=== PATIENT | male | born 1980 | race Two or more races ===

== ENCOUNTER 2019-10-17 01:35 | Emergency (ER) | payer OTHER ==
[2019-10-17 02:36] VITALS: BP 130/78
[2019-10-17] MEDS ORDERED: KETOROLAC TROMETHAMINE INJ/PF 30 MG/1 ML SDV IV ONE (02:37)
[2019-10-17] MEDS ORDERED: DIAZEPAM INJ 10 MG/2 ML DISP.SYRIN IV ONE (02:37)
[2019-10-17] MEDS ORDERED: NORMAL SALINE 1000 ML 1,000 ML IV ONE (02:37)
[2019-10-17] MEDS ORDERED: DEXAMETHASONE SOD PHOS INJ 10 MG/1 ML VIAL IV ONE (02:37)
--- NOTE | 2019-10-17 02:38 | ER Document Report ---
ED General - General Chief Complaint: Low Back Pain Stated Complaint: LOWER BACK PAIN Time Seen by Provider: 10/17/19 02:30 Primary Care Provider: [facility] [Primary Care Provider] - Follow up as needed Notes: Patient is a 39-year-old male that comes emergency department for chief complaint of lower back pain for about 5 days now. He states that it started out not as bad, he went to the [place] [facility] and they gave him a shot of Toradol and started him on tramadol, he states that he was doing reasonably well until today when he started having bad back spasms. He states he has to lean to the left where he will have terrible spasms. Pain is worse on the right but is on both sides in the lower back. He denies incontinence, numbness, fever, injury. He states he has had back problems ever since he was in the . His only history is orthopedic surgery, he denies ever using IV drugs, he states he has been given Robaxin and he has been taking this at home as well. TRAVEL OUTSIDE OF THE [place] IN LAST 30 DAYS: No - Related Data Allergies/Adverse Reactions: No Known Allergies Allergy (Unverified 11/05/13 03:48) Home Medications: tramadol. gabapentin. ambien. muscle relaxer Past Medical History - General Information source: Patient - Social History Smoking Status: Never Smoker Frequency of alcohol use: None Drug Abuse: None Lives with: Family Family History: Reviewed & Not Pertinent Patient has suicidal ideation: No Patient has homicidal ideation: No Musculoskeletal Medical History: Reports Hx Arthritis Psychiatric Medical History: Reports: Hx Depression - Immunizations Hx Diphtheria, Pertussis, Tetanus Vaccination: Yes Review of Systems - Review of Systems Constitutional: No symptoms reported EENT: No symptoms reported Cardiovascular: No symptoms reported Respiratory: No symptoms reported Gastrointestinal: No symptoms reported Genitourinary: No symptoms reported Male Genitourinary: No symptoms reported Musculoskeletal: See HPI Skin: No symptoms reported Hematologic/Lymphatic: No symptoms reported Neurological/Psychological: No symptoms reported Physical Exam - Vital signs Vitals: Temp Pulse Resp BP Pulse Ox 98.3 F 97 18 130/78 H 98 10/17/19 02:07 10/17/19 02:07 10/17/19 02:07 10/17/19 02:07 10/17/19 02:07 - Notes Notes: GENERAL: Alert, interacts well. Moves with discomfort but does not appear to be in severe distress otherwise HEAD: Normocephalic, atraumatic. EYES: Pupils equal, round, and reactive to light. Extraocular movements intact. ENT: Oral mucosa moist, tongue midline. Oropharynx unremarkable. Airway patent. NECK: Full range of motion. Supple. Trachea midline. LUNGS: Clear to auscultation bilaterally, no wheezes, rales, or rhonchi. No respiratory distress. HEART: Regular rate and rhythm. No murmur ABDOMEN: Soft, non-tender. Non-distended. Bowel sounds present in all 4 quadrants. GENITOURINARY: Deferred EXTREMITIES: Moves all 4 extremities spontaneously. No edema, normal radial and dorsalis pedis pulses bilaterally. No cyanosis. BACK: Patient with very specific areas of muscle spasm that are palpable in his lumbar spine worse on the right, no midline tenderness, no saddle anesthesia. Positive straight leg raise also worse on the right. Normal distal neurovascular exam. No signs of trauma. NEUROLOGICAL: Alert and oriented x3. Normal speech. Cranial nerves II through XII grossly intact. PSYCH: Normal affect, normal mood. SKIN: Warm, dry, normal turgor. No rashes or lesions noted. Course - Re-evaluation Re-evalutation: Patient with obvious muscle spasms on exam, suspect herniated disc with impingement based on his worsening symptoms and presentation. No midline tenderness, no neurological deficits, no fever, no reported history of IV drug abuse. Patient was given Valium, dexamethasone, Toradol. Given IV fluids. On reevaluation patient was able to get up and walk around. He is significantly improved but not completely resolved. Discussed treatment at home, expectations, follow-up, return precautions. Patient states appreciation and agreement. Stable at time of discharge. - Vital Signs Vital signs: Temp Pulse Resp BP Pulse Ox 98.3 F 97 18 130/78 H 98 10/17/19 02:07 10/17/19 02:07 10/17/19 02:07 10/17/19 02:07 10/17/19 02:07 Discharge - Discharge Clinical Impression: Lower back pain Qualifiers: Chronicity: acute Back pain laterality: bilateral Sciatica presence: with sciatica Sciatica laterality: sciatica of right side Qualified Code(s): M54.41 - Lumbago with sciatica, right side Condition: Stable Disposition: HOME, SELF-CARE Additional Instructions: Your evaluation is most consistent with a herniated disc and secondary back spasm and sciatica. Take the Valium as a muscle relaxer as prescribed using the precautions, take the anti-inflammatory as prescribed, you can continue the tramadol as well. You have been treated with steroids here that should last over the next several days. Apply heat to your back, avoid lifting or twisting. Symptoms should gradually improve. Follow close with your primary care for additional evaluation including your scheduled MRI. Return if you worsen including developing numbness, inability to control your bowel or bladder, fever, or any other concerning or worsening symptoms. Prescriptions: Naproxen 500 mg PO BID PRN #20 tablet PRN Reason: Diazepam [Valium 5 mg Tablet] 1 - 2 tab PO TID PRN #15 tablet PRN Reason: Referrals: [facility] [Primary Care Provider] - Follow up as needed
[2019-10-17] MEDS ORDERED: DIAZEPAM 5 MG TABLET PO ONE (04:18)
== END 2019-10-17 06:02 | disposition home or self-care (01) ==
LOC: ER 01:35
DX: M54.41 Lumbago with sciatica, right side (principal); M62.830 Muscle spasm of back; Z79.891 Long term (current) use of opiate analgesic; Z79.899 Other long term (current) drug therapy
CPT/HCPCS: 99283; 96361; 96374; 96375; J3360; J1885; J7030; J1100

== ENCOUNTER → 2019-11-29 | Outpatient (CLI) | payer OTHER ==
--- NOTE | 2019-11-29 16:16 | RADIOLOGY REPORT (SQ) ---
EXAM DESCRIPTION: MRI LUMBAR SPINE WITHOUT COMPLETED DATE/TIME: 11/29/2019 12:40 pm REASON FOR STUDY: M54.5 LOW BACK PAIN M54.5 LOW BACK PAIN COMPARISON: None. TECHNIQUE: Sagittal and Axial imaging includes T1, T2, STIR and gradient echo sequences. Coronal T2/ HASTE imaging. LIMITATIONS: None. FINDINGS: VISUALIZED UPPER ABDOMEN: Limited evaluation. No acute or suspicious findings suggested. SEGMENTATION: No transitional anatomy. The lowest well-developed disc space is labeled L5-S1. ALIGNMENT: Straightening of the normal lumbar lordosis. VERTEBRAE: Intact. BONE MARROW: Chronic Modic endplate changes at L5-S1 disc space with increased T1 and T2 signal sourav tible with fatty marrow replacement. DISC SIGNAL: There is disc desiccation at L4-5 and L5-S1. POSTERIOR ELEMENTS: Generally intact. No pars defect evident. HARDWARE: None in the spine. CORD AND CONUS: Normal in size and signal intensity. Conus medullaris terminates at the L1 level. SOFT TISSUES: No aortic aneurysm seen. No bulky retroperitoneal adenopathy or mass. No paraspinal mas s or fluid. L1-L2: No significant spinal stenosis or exit foraminal stenosis. L2-L3: No significant spinal stenosis or exit foraminal stenosis. L3-L4: No significant spinal stenosis or exit foraminal stenosis. L4-L5: Significant central disc extrusion resulting and moderate canal stenosis and narrowing of the bilateral lateral recesses, left greater than right. There is mild superior extension of the disc me asuring approximately 2 mm. Total disc component measures approximately 11 mm in cranial caudal dime nsion. There is contact of the traversing nerve roots on the left. There is mild bilateral neural f oraminal narrowing secondary to disc disease. L5-S1: Disc desiccation and height loss with circumferential disc bulge resulting in mild canal steno sis. There is bilateral lateral recess narrowing, left greater than right with contact of the luisa sing nerve roots. Mild bilateral neural foraminal narrowing secondary to disc disease. LOWER THORACIC: Incompletely imaged. No stenosis seen. SACRUM: Visualized upper sacrum intact. OTHER: No other significant findings. IMPRESSION: 1. L4-5 significant central disc extrusion resulting in moderate canal stenosis and you rowing of the bilateral lateral recesses, left greater than right, with contact of the traversing ner ve roots. Mild bilateral neural foraminal narrowing. 2. Additional circumferential disc at L5-S1 resulting in mild canal stenosis and bilateral neural fo raminal narrowing. 3. No evidence of acute bony abnormality. Chronic Modic endplate changes at L5-S1. TECHNICAL DOCUMENTATION: JOB ID: [id number] [email or web address]- All Rights Reserved Reading location - IP/workstation name: [email or web address]
== END ==
LOC: RAD 11:55
PROVIDERS: ATTEND Nurse Practitioner Family
DX: M51.26 Other intervertebral disc displacement, lumbar region (principal); M48.07 Spinal stenosis, lumbosacral region
CPT/HCPCS: 72148